=== PATIENT | male | born 1985 | race Caucasian/White ===

== ENCOUNTER 2019-03-27 02:29 | Emergency (ER) | payer MEDICAID, OTHER ==
[~2019-03-27] VITALS: Ht 162.6 cm; Wt 70.3 kg
[2019-03-27 02:37] VITALS: Ht 162.6 cm; Wt 70.3 kg
--- NOTE | 2019-03-27 02:46 | ERD ---
ER Documentation Chief Complaint Chief Complaint ABD PAIN X3WKS; NO OTHER GI S/S HPI The patient is a 33-year-old male, presenting to the ER because of intermittent epigastric abdominal pain for 3 weeks, worse with eating, had similar symptoms previously. He denies fever, chills, neck pain, chest pain, dyspnea, dysuria, diarrhea, constipation. He does not smoke, drinks socially, denies illicit drug Medical/surgical history: None ROS All systems reviewed and are negative except as per history of present illness. Medications Home Meds Active Scripts Pantoprazole* (Protonix*) 40 Mg Tablet., 40 MG PO DAILY, #10 TAB Prov:ALIZE GIBBS MD 03/27/19 Allergies Allergies: Coded Allergies: No Known Allergy (Unverified , 03/27/19) PMhx/Soc Medical and Surgical Hx: pt denies Medical Hx, pt denies Surgical Hx Hx Alcohol Use: No Hx Substance Use: No Hx Tobacco Use: No Smoking Status: Never smoker Physical Exam Vitals Vital Signs Date Temp Pulse Resp B/P (MAP) Pulse Ox O2 O2 Flow FiO2 Time Delivery Rate 03/27/19 65 18 111/67 99 Room Air 04:41 (82) 03/27/19 98.6 68 18 122/89 97 Room Air 02:42 (100) 03/27/19 98.6 69 18 129/73 97 02:37 (91) Physical Exam Const: No acute distress. Head: Atraumatic. Eyes: Normal Conjunctiva. ENT: Normal External Ears, Nose and Mouth. Neck: Full range of motion. No meningismus. Resp: Clear to auscultation bilaterally. Cardio: Regular rate and rhythm. Abd: Soft, non distended, normal bowel sounds, mild epigastric tenderness, no right lower quadrant rigidity, rebound or CVA tenderness Skin: No petechiae or rashes. Back: No midline or flank tenderness. Ext: No cyanosis, or edema. Neur: Awake and alert. No focal deficit Psych: Normal Mood and Affect. Result Diagram: 03/27/19 0308 03/27/19 0308 Results 24 hrs Laboratory Tests Test 03/27/19 03:08 03/27/19 03:15 White Blood Count 12.0 10^3/ul Red Blood Count 4.36 10^6/ul Hemoglobin 14.5 g/dl Hematocrit 40.3 % Mean Corpuscular Volume 92.4 fl Mean Corpuscular Hemoglobin 33.3 pg Mean Corpuscular Hemoglobin Concent 36.0 g/dl Red Cell Distribution Width 12.1 % Platelet Count 212 10^3/UL Mean Platelet Volume 9.6 fl Immature Granulocytes % 0.300 % Neutrophils % 82.2 % Lymphocytes % 10.1 % Monocytes % 6.0 % Eosinophils % 1.2 % Basophils % 0.2 % Nucleated Red Blood Cells % 0.0 /100WBC Immature Granulocytes # 0.030 10^3/ul Neutrophils # 9.8 10^3/ul Lymphocytes # 1.2 10^3/ul Monocytes # 0.7 10^3/ul Eosinophils # 0.1 10^3/ul Basophils # 0.0 10^3/ul Nucleated Red Blood Cells # 0.0 10^3/ul Sodium Level 141 mmol/L Potassium Level 3.8 mmol/L Chloride Level 106 mmol/L Carbon Dioxide Level 25 mmol/L Anion Gap 10 Blood Urea Nitrogen 22 mg/dl Creatinine 0.76 mg/dl Est Glomerular Filtrat Rate mL/min > 60 mL/min Glucose Level 105 mg/dl Calcium Level 8.7 mg/dl Total Bilirubin 0.7 mg/dl Direct Bilirubin 0.00 mg/dl Indirect Bilirubin 0.7 mg/dl Aspartate Amino Transf (AST/SGOT) 73 IU/L Alanine Aminotransferase (ALT/SGPT) 132 IU/L Alkaline Phosphatase 73 IU/L Total Protein 7.6 g/dl Albumin 4.3 g/dl Globulin 3.30 g/dl Albumin/Globulin Ratio 1.30 Lipase 66 U/L Ethyl Alcohol Level < 10.0 mg/dl Bedside Urine pH (LAB) 6.5 Bedside Urine Protein (LAB) Negative Bedside Urine Glucose (UA) Negative Bedside Urine Ketones (LAB) Negative Bedside Urine Blood 3+ Bedside Urine Nitrite (LAB) Negative Bedside Urine Leukocyte Esterase (L Negative Current Medications Medications Dose Sig/Harvinder Start Time Status Last (Trade) Ordered Route PRN Stop Time Admin Dose Reason Admin Ketorolac 30 mg ONCE STAT 03/27/19 DC 03/27/19 Tromethamine IV 03:23 03:32 (Toradol) 03/27/19 03:24 40 ml ONCE ONCE 03/27/19 03/27/19 Miscellaneous PO 06:00 05:43 Medication 03/27/19 06:01 (Gi Cocktail (2)) Procedures/MDM [place] [address] Radiology Main Line: [phone] DIAGNOSTIC IMAGING REPORT Patient: ELIZABETH GALEANO : 1985 Age: 33 Sex: M MR #: [id number] DOS: 03/27/19 0404 Ordering MD: ALIZE GIBBS MD Location: E/R Room/Bed: PROCEDURE: Ultrasound gallbladder CLINICAL INDICATION: abdominal pain TECHNIQUE: Romero scale, color flow and Doppler ultrasound images of the abdomen. COMPARISON: None FINDINGS: Pancreas: Obscured by shadowing bowel gas. Liver: Liver demonstrates normal size and echotexture. No parenchymal lesions are identified. Normal directional flow toward the liver is demonstrated in the main portal vein. Gallbladder: Negative for gallstones. No wall thickening or pericholecystic fluid. Biliary system: No significant dilatation of the intrahepatic or extrahepatic biliary system. Common bile duct measures 4 mm diameter. Right Kidney: Measures 10.2 cm in length and demonstrates normal echotexture. No hydronephrosis, intrarenal calculus or abnormal perinephric fluid. Additional findings: None IMPRESSION: 1. Unremarkable ultrasound of the right upper abdomen. 2. Pancreas not clearly seen. RPTAT: [facility] Physician Carol Date Time Electronically viewed and signed by Physician Carol on 03/27/2019 05:39 xB/ CC: ALIZE GIBBS MD [id number] MEDICAL MAKING DECISION: The patient is a 33-year-old male, ending to the ER because of abdominal pain of unclear etiology, acute hematuria, was treated with Toradol 30 mg IV and gastrointestinal cocktail with good response, is stable for present follow-up The differential diagnoses considered include but are not limited to cholelithiasis, cholecystitis, choledocholithiasis, cholangitis, pancreatitis, hepatitis, gastritis, peptic ulcer disease, gastric ulcer, appendicitis, cystitis, diverticulitis, partial small bowel obstruction. Departure Diagnosis: Primary Impression: Abdominal pain Additional Impression: Hematuria Condition: Good Comments He was discharged with Protonix I discussed the findings with the patient. I advised the patient to follow-up with the primary physician in about 2-3 days for reevaluation and referral to gastroenterology and urology for acute hematuria, sooner if needed and return if any concern. Disclaimer: Inadvertent spelling and grammatical errors are likely due to EHR/dictation software use and do not reflect on the overall quality of patient care. Also, please note that the electronic time recorded on this note does not necessarily reflect the actual time of the patient encounter. ALIZE GIBBS MD Mar 27, 2019 02:46
[2019-03-27] MEDS ORDERED: KETOROLAC 30 MG INJ IV STA (03:23)
[2019-03-27] MEDS ORDERED: PANT40TA3 PO (05:51)
[2019-03-27 06:00] VITALS: BP 112/89; PULSE 80; RESP 18
[2019-03-27] MEDS ORDERED: LIDOCAINE/MYLANTA 40 ML BTL PO ONE (06:00)
== END 2019-03-27 06:00 | disposition home or self-care (01) ==
LOC: E/R 02:29
DX: R10.13 Epigastric pain (principal); R31.9 Hematuria, unspecified
CPT/HCPCS: 36415; 76705; 80053; 80307; 81003; 83690; 85025; 96374; J1885; Z7502; Z7610